=== PATIENT | male | born 1975 | race Caucasian/White ===

== ENCOUNTER → 2021-04-03 15:19 | Outpatient (BNVA) | payer MEDICAID, SELFPAY | PROVIDERS: PCP Registered Nurse; Visit Provider Surgery Vascular Surgery | DX: I83.11 Varicose veins of right lower extremity with inflammation (principal) | CPT/HCPCS: 99202 ==

== ENCOUNTER 2021-04-25 10:09 | Outpatient (REF) | payer MEDICAID, SELFPAY ==
--- NOTE | ~2021-04-25 | US_ITS ---
EXAMINATION: US LOWER EXTREMITY VENOUS ULTRASOUND (REFLUX EXAM) BILATERAL CLINICAL INDICATION: Varicose veins of the right lower extremity with inflammation. COMPARISON: None. TECHNIQUE: [place]- flow triplex imaging and compression Doppler was performed to evaluate both the deep and the superficial systems bilaterally. To evaluate the superficial system, the examination was performed in the upright position. Color-flow Doppler ultrasound and compression ultrasound were utilized. In addition, maneuvers were utilized to demonstrate reflux. FINDINGS: 1. DEEP VENOUS ULTRASOUND OF THE RIGHT LOWER EXTREMITY: Respiratory variation, normal compression and augmented flow are noted in the right common femoral vein as well as the right popliteal vein, and there is no evidence of deep venous thrombosis at these locations. There is reflux noted within the mid superficial femoral vein up to 1.6 cm in duration. There is no evidence of a popliteal artery aneurysm or popliteal fossa cyst. 2. SUPERFICIAL ULTRASOUND WITH DOPPLER OF RIGHT LOWER EXTREMITY: The right great saphenous vein at the saphenofemoral junction measures 7 mm with reflux up to 2.7 seconds, at the midthigh 7 mm with reflux up to 3.2 seconds, [id number] 12 mm with reflux up to 3.3 seconds, [id number] 7 mm with reflux up to 3 seconds duration, at midcalf 5 mm without reflux, and at the ankle measures 3 mm without reflux. The right small saphenous vein measures 3 mm and shows no reflux. There is a 5 mm co founder and cto seen within the proximal calf. There is a 6 mm co founder and cto seen within the mid calf. Neither have reflux present. There is a 4 mm right distal small saphenous vein varicosity with reflux up to 2.9 seconds duration. 3. DEEP VENOUS ULTRASOUND OF THE LEFT LOWER EXTREMITY: Respiratory variation, normal compression and augmented flow are noted in the left common femoral vein as well as the left popliteal vein. No evidence of acute deep venous thrombosis. There is reflux seen within the popliteal vein up to 3.2 seconds duration.No evidence of popliteal fossa cyst or popliteal artery aneurysm. 4. SUPERFICIAL ULTRASOUND WITH DOPPLER OF LEFT LOWER EXTREMITY: Left great saphenous vein at the saphenofemoral junction measures 6 mm without reflux, at the mid thigh 3 mm without reflux, [id number] 4 mm with reflux of greater than 3 seconds duration, [id number]-[id number] 4 mm without reflux, at mid calf 4 mm without reflux, and at the ankle measures 2 mm without reflux. The left small saphenous vein measures 4 mm and shows no reflux. US/US venous duplex LE BI IMPRESSION: No evidence of acute deep venous thrombosis within either the right or left lower extremity. Deep venous insufficiency in the mid superficial femoral vein on the right upper to 1.6 seconds duration and within the popliteal vein on the left greater than 3 seconds duration. Right greater saphenous vein insufficiency from the saphenofemoral junction down to just below the knee of up to greater than 3 seconds duration. Left greater saphenous vein insufficiency seen only [id number] at greater than 3 seconds duration.
== END 2021-04-25 10:10 | disposition home or self-care (01) ==
LOC: HO.US 10:09
PROVIDERS: Visit Provider Surgery Vascular Surgery
DX: I83.11 Varicose veins of right lower extremity with inflammation (principal); I83.893 Varicose veins of bilateral lower extremities with other complications
CPT/HCPCS: 93970